=== PATIENT | female | born 2005 | race Caucasian/White ===

== ENCOUNTER 2024-12-05 14:59 | Inpatient (IN) | payer OTHER ==
[2024-12-05 15:56] VITALS: BMI 28.9
[2024-12-05 16:20] LABS: #Basophils 0.04 10x3/uL (0.0-0.2); #Eosinophils 0.10 10x3/uL (0.0-0.5); #Monocytes 1.48 10x3/uL (0.0-1.1); #Neutrophils 13.88 10x3/uL (1.5-8.4); %Basophils 0.2 % (0.0-2.0); %Eosinophils 0.6 % (0.0-6.0); %Lymphocytes 11.2 % (18.0-47.0); %Monocytes 8.4 % (0.0-10.0); %Neutrophils 78.5 % (40.0-75.0); Hematocrit 39.2 % (34.9-44.5); Hemoglobin 13.1 g/dL (12.0-15.5); Mean Corpuscular Hemoglobin 30.9 pg (27.0-33.0); Mean Corpuscular Volume 92.5 fL (81.6-98.3); Platelet Count 247 10x3/uL (150-450); Red Blood Cell (RBC) Count 4.24 10x6/uL (3.90-5.03); White Blood Cell (WBC) Count 17.66 10x3/uL (3.5-10.5)
[2024-12-05 16:34] LABS: ALT (SGPT) 14 U/L (Less than 34); AST (SGOT) 25 U/L (11-34); Albumin 3.3 g/dL (3.1-4.5); Alkaline Phosphatase 368 U/L (40-100); Anion Gap 14 mmol/L (10-20); BUN (Urea Nitrogen) 5 mg/dL (7.0-18.7); Bilirubin, Total 0.5 mg/dL (0.3-1.2); Calc. Creatinine Clearance 201 mL/min (70-130); Calcium 9.0 mg/dL (7.8-10.44); Carbon Dioxide 22 mmol/L (22-29); Chloride 104 mmol/L (98-107); Globulin 3.8 g/dL (2.4-3.5); Glucose 111 mg/dL (70-105); Potassium 3.9 mmol/L (3.5-5.1); Sodium 136 mmol/L (136-145)
[2024-12-05] MEDS: Acetaminophen 500 MG TAB PO SCH (17:47)
[2024-12-05 17:53] LABS: Protein, Urine Random Quant 10.0 mg/dL (1-14)
[2024-12-05] MEDS ORDERED: Ondansetron PF 4 MG/2 ML Vial IVP PRN (18:21)
[2024-12-05] MEDS ORDERED: Lidocaine 1% (PF) 30 ML VIAL SC PRN (18:21)
[2024-12-05] MEDS ORDERED: hydrALAZINE 20 MG/ML VIAL SLOW IVP PRN (18:21)
[2024-12-05] MEDS ORDERED: Oxytocin 30 units/NS 500 ML 500 ML IV SCH (18:30)
[2024-12-05 18:32] LABS: Fetal Membranes Rupture RUPTURE DETECTED (No Rupture)
[2024-12-05 22:55] LABS: Hep B Surf Ag - L&D Non-Reactive S/CO (NonReactive); Syphilis Antibody Index 0.11 S/CO (<1.00 Non-Reactive)
[2024-12-06] MEDS ORDERED: Acetaminophen 500 MG TAB PO PRN (00:06)
[2024-12-06] MEDS: fentaNYL/Ropivacaine Epidural 100 ML ONE (09:58)
[2024-12-06] MEDS: Oxytocin 30 units/NS 500 ML 500 ML IV SCH (09:58)
[2024-12-06] MEDS ORDERED: Ondansetron PF 4 MG/2 ML Vial IVP PRN ×2 (10:52→16:35)
[2024-12-06] MEDS ORDERED: diphenhydrAMINE 50 MG/ML VIAL IVP PRN (10:52)
[2024-12-06] MEDS ORDERED: Acetaminophen 325 MG TAB PO PRN (10:52)
[2024-12-06] MEDS ORDERED: Communication Order-Pharmacy FS SCH (11:00)
[2024-12-06] MEDS ORDERED: fentaNYL 2 mcg/Ropivacaine 0.2% Epidural 100 ML CADD EPIDURAL SCH (11:00)
[2024-12-06] MEDS ORDERED: diphenhydrAMINE 25 MG CAP PO PRN (16:35)
[2024-12-06] MEDS ORDERED: Lanolin Ointment 7 GM TUBE TOP PRN (16:35)
[2024-12-06] MEDS ORDERED: Bisacodyl 10 MG SUPP PR PRN (16:35)
[2024-12-06] MEDS ORDERED: HYDROcodone/Acetaminophen 5/325 mg Tablet PO PRN (16:35)
[2024-12-06] MEDS ORDERED: Milk Of Magnesia 30 ML UDCUP PO PRN (16:35)
[2024-12-06] MEDS ORDERED: hydrALAZINE 20 MG/ML VIAL SLOW IVP PRN (16:35)
[2024-12-06] MEDS: Ferrous Sulfate 325 MG TAB PO SCH (17:21)
[2024-12-06] MEDS: Ibuprofen 800 MG TAB PO SCH ×2 (17:28→21:19)
[2024-12-06] MEDS ORDERED: Bupivacaine 0.25% HCL 30 ML VIAL ONE (18:37)
[2024-12-07] MEDS: Benzocaine-Menthol 82.5 ML CAN TOP PRN (08:08)
[2024-12-08] MEDS: Boostrix 0.5 ML (Tdap) VIAL (>/=7 yrs of age) IM ONE (07:19)
[2024-12-08 08:28] VITALS: BP 111/67; TEMP 97.6
== END 2024-12-08 14:20 | disposition home or self-care (01) | DRG 807 ==
LOC: CSHERS 14:59 → CSHLD 19:08 → CSHPP 12-06 16:00
PROVIDERS: ADMIT Family Medicine; ATTEND Family Medicine
PROC: 10E0XZZ Delivery of Products of Conception, External Approach (ICD-10-PCS; principal; 2024-12-08)
PROC: 4A1HXCZ Monitoring of Products of Conception, Cardiac Rate, External Approach (ICD-10-PCS; 2024-12-08)
PROC: 0UQMXZZ Repair Vulva, External Approach (ICD-10-PCS; 2024-12-08)
DX: O48.0 Post-term pregnancy (principal); Z37.0 Single live birth; Z79.899 Other long term (current) drug therapy; Z79.82 Long term (current) use of aspirin; Z3A.40 40 weeks gestation of pregnancy
CPT/HCPCS: 36415; 51702; 80053; 82570; 84112; 84156; 85025; 86780; 86850; 86900; 86901; 87340; 99285; J0595; J0665; J2590